=== PATIENT | female | born 1955 | race Caucasian/White ===

== ENCOUNTER 2016-04-29 20:45 | Emergency (ER) | payer MEDICARE, MEDICAID ==
[2016-04-29] MEDS ORDERED: Clarithromycin 250 MG/5 ML Oral Suspension ONE (21:13)
[2016-04-29] MEDS ORDERED: predniSONE 20 MG TAB ONE (21:13)
[2016-04-29 21:36] LABS: #Basophils 0.1 thou/uL (0.0-0.2); #Eosinphils 1.1 thou/uL (0.0-0.7); #Lymphocytes 1.7 thou/uL (1.20-3.40); #Monocytes 0.7 thou/uL (0.11-0.59); #Neutrophils 5.5 thou/uL (1.40-6.50); %Basophils 0.7 % (0.0-1.0); %Eosinophils 12.5 % (0.0-10.0); %Lymphocytes 18.4 % (21.0-51.0); %Monocytes 8.1 % (0.0-10.0); %Neutrophils 60.2 % (42.0-75.0); Anisocytosis SLIGHT = 6-15 cells (100X) (0-5/hpf); Hemoglobin 10.3 g/dL (12.0-16.0); Hypochromia SLIGHT = 6-15 cells (100X) (0-5/hpf); MDiff Complete? YES; Mean Corpuscular HGB CONC 31.1 g/dL (32.0-36.0); Mean Corpuscular Volume 77.2 fl (81.0-99.0); Mean Platelet Volume 7.3 fL (7.4-10.4); Microcytosis SLIGHT = 6-15 cells (100X) (0-5/hpf); PLT Morphology Comment Appears Adequate; Platelet Count 297 thou/uL (130-400); RBC Distribution Width 16.6 % (11.5-14.5); Red Blood Cell (RBC) Count 4.28 mill/uL (4.20-5.40); White Blood Cell (WBC) Count 9.2 thou/uL (4.8-10.8)
[2016-04-29 21:39] LABS: ALT (SGPT) 8 U/L (0-55); AST (SGOT) 15 U/L (5-34); Albumin 2.9 g/dL (3.4-4.8); Alkaline Phosphatase 89 U/L (40-150); Anion Gap 17 mmol/L (10-20); BUN (Urea Nitrogen) 14 mg/dL (9.8-20.1); Bilirubin, Total 0.4 mg/dL (0.2-1.2); Calc. Creatinine Clearance 0 mL/min (70-130); Calcium 8.2 mg/dL (7.8-10.44); Carbon Dioxide 21 mmol/L (23-31); Chloride 102 mmol/L (98-107); Estimated GFR-MDRD Greater than 90; Globulin 3.6 g/dL (2.4-3.5); Glucose 96 mg/dL (80-115); Potassium 3.7 mmol/L (3.5-5.1); Protein, Total 6.5 g/dL (5.8-8.1); Sodium 136 mmol/L (136-145)
[2016-04-29] MEDS ORDERED: HYDROcodone/Acetaminophen 5/325 mg Tablet ONE (22:00)
--- NOTE | 2016-04-29 22:09 | ERRECORD ---
[facility] EMERGENCY RECORD HPI COUGH (21:04 ABUS) CHIEF COMPLAINT: Patient presents for evaluation of cough, productive of yellow sputum. HISTORIAN: History provided by patient, 61 yr old F with PMH of Asthma and HTN who comes iin with reports of SOB, cough and sick contact (granddaughter) for the past 2-3 days. Cough is productive (yellow). Also has R ankle pain after stepping into a pot hole and twisting it. LOCATION: Symptoms are generalized. QUALITY: Denies choking sensation, Symptoms described as wheezing. SEVERITY: Currently symptoms are moderate. TIME COURSE: Gradual onset of symptoms, 3, days priror to arrival, There has been no change in the patient's symptoms over time, are constant. ASSOCIATED WITH: No associated chest pain, No associated diarrhea, No associated fever, No associated nausea, No associated stridor, Associated with upper respiratory infection, Associated with wheezing. EXACERBATED BY: Patient's condition exacerbated by nothing. RELIEVED BY: Patient's condition relieved by nothing, Patient's condition relieved by home nebs, Patient's condition relieved by oxygen. ROS (21:06 ABUS) CONSTITUTIONAL: Negative constitutional review of systems, Historian denies chills, denies fever. CARDIOVASCULAR: Negative cardiovascular review of systems, Historian denies chest pain, denies palpitations. RESPIRATORY: Historian reports cough, reports shortness of breath, reports sputum. yellow. GI: Negative gastrointestinal review of systems, Historian denies abdominal pain, denies constipation, denies diarrhea, denies nausea, denies vomiting. GENITOURINARY FEMALE: Negative genitourinary review of systems, Historian denies dysuria, denies frequency. SKIN: Negative skin review of systems, Historian denies rash, denies skin changes. NEUROLOGIC: Negative neurologic review of systems, Historian denies headache. HEMO/LYMPHATIC: Normal hematologic/lymphatic system review, Historian denies abnormal blood clotting. PAST MEDICAL HISTORY (21:01 CJ) MEDICAL HISTORY: Flu vaccine not up to date, Tetanus immunization up to date, Pneumococcal vaccine not up to date, Past medical history includes gastrointestinal disease, gastroesophageal reflux disease, Past medical history includes history of hypertension, which has been treated, Patient is compliant, Past medical history includes history of malignancy, primary site skin, on face, treated with Chemo cream, Past medical history includes pulmonary disease, chronic obstructive pulmonary disease,. &a-1R&a+25V*p+0X*[id number]*c202B*c15G*c2P*p-0X&a-25V&a+1R Name: Merary Sanchez : 1955 F61 MedRec: [id number] AcctNum: [id number] Prepared: MonApr 29, 2016 22:17 by Interface Page 1 of 5 pMD [facility] EMERGENCY RECORD FEMALE SURGICAL HISTORY: left ankle and bilateral knee surgery, partial hysterectomy, surgery to remove blood clot in abdomen, right shoulder and wrist, skin cancer removed from chin and left forearm. Verified with patient. PSYCHIATRIC HISTORY: No previous psychiatric history. SOCIAL HISTORY: Patient denies alcohol use, Patient denies drug use, Patient has no smoking history, Lives at home, lives with friend,. KNOWN ALLERGIES erythromycin base Influenza Virus Vaccines ketorolac tromethamine LEVAQUIN: Reaction: Anaphylaxis, Severity: Moderate, Source: Patient levofloxacin methylprednisolone sodium succinate ondansetron HCl Penicillins Phenothiazines pneumococcal vaccine promethazine HCl Quinolones Sulfa (Sulfonamide Antibiotics) tiotropium bromide tramadol HCl zolpidem CURRENT MEDICATIONS Proventil HFA: HFA AEROSOL WITH ADAPTER (GRAM) : Strength - 90 mcg : INHALATION Patient Dose: 2 puff(s) Inhaler As Needed. (21:42 CJEF) sucralfate: TABLET : Strength - 1 gram : ORAL Patient Dose: 1 g Oral 2 times a day. (21:42 CJEF) iron: CAPSULE, EXTENDED RELEASE : Strength - 325 mg (65 mg iron) : ORAL Patient Dose: 325 mg Oral once a day. (21:43 CJEF) amLODIPine: TABLET : Strength - 5 mg : ORAL Patient Dose: 5 mg Oral once a day. (21:44 CJEF) cephALEXin: CAPSULE : Strength - 500 mg : ORAL Patient Dose: 500 mg Oral 4 times a day. (21:45 CJEF) furosemide: TABLET : Strength - 40 mg : ORAL Patient Dose: 40 mg Oral once a day. (21:45 CJEF) ranitidine HCl: CAPSULE : Strength - 150 mg : ORAL Patient Dose: 1 tab(s) Oral 2 times a day (before meals). &a-1R&a+25V*p+0X*a1762M*c202B*c15G*c2P*p-0X&a-25V&a+1R Name: Merary Sanchez : 1955 F61 MedRec: [id number] AcctNum: [id number] Prepared: MonApr 29, 2016 22:17 by Interface Page 2 of 5 pMD [facility] EMERGENCY RECORD (21:46 CJEF) enalapril maleate: TABLET : Strength - 20 mg : ORAL Patient Dose: 2 tab(s) Oral 2 times a day. (21:46 CJEF) meTOPROLOL tartrate: TABLET : Strength - 25 mg : ORAL Patient Dose: 1 tab(s) Oral once a day (in the morning). (21:46 CJEF) potassium chloride: TABLET, EXTENDED RELEASE : Strength - 20 mEq : ORAL Patient Dose: 40 mEq Oral 2 times a day. (21:49 CJEF) VITAL SIGNS VITAL SIGNS: Pulse: 102, Resp: 26, O2 sat: 92 on Room Air, Time: 04/29/2016 20:56. (20:56 CJEF) BP: 151/98, Resp: 20, Time: 04/29/2016 20:59. (20:59 CJEF) Temp: 98 (Tympanic), Pain: 8, Time: 04/29/2016 21:21. (21:21 CJEF) BP: 132/60, Pulse: 92, Resp: 21, O2 sat: 100 on Face mask, Time: 04/29/2016 21:29. (21:29 CJEF) BP: 152/73, Pulse: 98, Resp: 20, Temp: 98.1 (Tympanic), Pain: 8, O2 sat: 95 on Room Air, Time: 04/29/2016 22:03. (22:03 CJEF) PHYSICAL EXAM (21:06 ABUS) CONSTITUTIONAL: Vital signs reviewed, Patient afebrile, Pulse normal, Blood pressure normal, Respiratory rate normal, Patient appears non toxic, Patient appears pain free, Patient alert and oriented to person, place and time. NECK: Neck exam normal, Neck exam included findings of normal range of motion, Trachea midline, no meningeal signs, no cervical adenopathy, no tenderness. RESPIRATORY CHEST: Respiratory exam included findings of no respiratory distress, Breath sounds not clear, Wheezing present, scattered, to bilateral upper lobes, Chest exam included findings of chest movement symmetrical, Chest expansion equal, Percussion normal. CARDIOVASCULAR: Cardiovascular assessment normal, Cardiovascular exam included findings of heart rate regular rate and rhythm, Heart sounds normal. ABDOMEN FEMALE: Abdominal exam included findings of abdomen nontender, Bowel sounds normal, no distension, no mass, no pulsatile masses, no peritoneal signs, no rigidity, no guarding, no rebound, Rovsing's sign absent. BACK: Back exam normal, Back exam included findings of normal inspection, range of motion normal, no tenderness. NEURO: Neuro exam normal, Neuro exam findings include patient oriented to person, place and time, Speech normal, Gait normal. SKIN: Skin exam normal, Skin exam included findings of skin warm, dry, and normal in color, no rash. EKG INTERPRETATION (21:28 ABUS) &a-1R&a+25V*p+0X*f0963C*c202B*c15G*c2P*p-0X&a-25V&a+1R Name: Merary Sanchez : 1955 F61 MedRec: [id number] AcctNum: [id number] Prepared: MonApr 29, 2016 22:17 by Interface Page 3 of 5 pMD [facility] EMERGENCY RECORD 12 LEAD EKG INTERPRETATION: 12 lead EKG interpreted by Emergency Department Physician at time of study, 12 lead EKG shows normal sinus rhythm, Rate (beats per minute): 88, with no ectopics, Conduction normal, ST segments normal, T waves, Leads affected: V1, Leads affected: V2, [place], indeterminate, Clinical impression:, non-specific EKG. MEDICATION ADMINISTRATION SUMMARY Drug Name: HYDROcodone-acetaminophen, Dose Ordered: 5/325 tab(s), Route: Oral, Status: Given, Time: 22:03 04/29/2016, Drug Name: clarithromycin, Dose Ordered: 500 mg, Route: Oral, Status: Given, Time: 21:36 04/29/2016, Drug Name: predniSONE oral, Dose Ordered: 40 mg, Route: Oral, Status: Given, Time: 21:19 04/29/2016, Drug Name: DuoNeb, Dose Ordered: 3 mL, Route: Nebulize, Status: Given, Time: 21:18 04/29/2016, Detailed record available in Medication Service section. DOCTOR NOTES (21:06 ABUS) TEXT: 61 yr old F with PMH of Asthma and HTN who comes iin with reports of SOB, cough and sick contact (granddaughter) for the past 2-3 days. Exam: Scattered wheezes throughout; afebrile. Dx: Bronchitis, CAP, viral URI, allergic rhinitis Plan: Nebs, steroids, Biaxin, CXR, and ankle xray. PROBLEM LIST No recorded problems DIAGNOSIS (22:01 ABUS) FINAL: PRIMARY: CAP, ADDITIONAL: LEFT ankle sprain (unspecified). PRESCRIPTION (22:00 ABUS) acetaminophen-codeine: TABLET : 300 mg-30 mg : ORAL : Quantity: 1 Unit: tab(s) Route: ORAL Schedule: every 6 hours PRN Dispense: 8 Unit: tab(s) May substitute. Refills: No Refills . NOTES: No Refills. predniSONE oral: TABLET : 20 mg : ORAL : Quantity: 40 Unit: mg Route: ORAL Schedule: once a day Dispense: 8 Unit: tab(s) May substitute. Refills: No Refills . NOTES: ^s=No Refills No Refills. Biaxin: TABLET : 500 mg : ORAL : Quantity: 1 Unit: tab(s) Route: ORAL Schedule: 2 times a day Dispense: 14 Unit: tab(s) &a-1R&a+25V*p+0X*s9530W*c202B*c15G*c2P*p-0X&a-25V&a+1R Name: Merary Sanchez : 1955 F61 MedRec: [id number] AcctNum: [id number] Prepared: MonApr 29, 2016 22:17 by Interface Page 4 of 5 pMD [facility] EMERGENCY RECORD May substitute. Refills: No Refills POTENTIAL SEVERE INTERACTION: HYDROcodone-acetaminophen (hydrocodone bitartrate/acetaminophen) Override Rationale: Reviewed with patient POTENTIAL SEVERE INTERACTION: amLODIPine Override Rationale: Reviewed with patient. NOTES: ^s=^s=No Refills No Refills No Refills. DISPOSITION PATIENT: Disposition Type: Discharge, Disposition: *Discharge Home, Condition: Good. (22:01 RENARD) Patient left the department. (22:12 MACHELLE) Nice: RENARD=MD Jun, Pee CJEF=PETTY Tejeda, Dalila &a-1R&a+25V*p+0X*c1456M*c202B*c15G*c2P*p-0X&a-25V&a+1R Name: Daniel Merary Chantelle : 1955 F61 MedRec: [id number] AcctNum: [id number] Prepared: MonApr 29, 2016 22:17 by Interface Page 5 of 5 pMD MTDD
--- NOTE | 2016-04-29 22:14 | RAD ---
PA AND LATERAL VIEWS OF THE CHEST: 04/29/16 HISTORY: Cough. FINDINGS/IMPRESSION: The heart is enlarged. The aorta is tortuous. There is mild prominence of the pulmonary vascularity without confluent areas of consolidation, pneumothorax or pleural effusions. There is a fracture of the proximal humerus which is also seen on the exam of 11/28/15. POS: [facility]
--- NOTE | 2016-04-29 22:14 | PICIS ---
[facility] EMERGENCY RECORD TRIAGE (MonApr 29, 2016 20:58 CJEF) TRIAGE NOTES: PT REPORTS SOB THAT STARTED X2-3 DAYS AGO AND PT REPORTS NOW COUGHING UP YELLOW SPUTUM. PT ALSO REPORTS PAIN TO RIGHT ANKLE DUE TO TRIPPING IN HOLE X1 WEEK AGO. PT REPORTS SWELLING TO THE LATERAL SIDE OF RIGHT ANKLE. (MonApr 29, 2016 20:58 CJEF) PATIENT: NAME: Merary Sanchez, AGE: 61, GENDER: female, : Mon1955, TIME OF GREET: MonApr 29, 2016 20:47, PREFERRED LANGUAGE: Frisian, ETHNICITY: Not or , FALL RISK: YES, ECODE BILLING MAP: [facility], SSN: [id number], Zip Code: [address], KG WEIGHT: 74.39, PHONE: , , , PERSON ID: [id number], PCP: ENRIQUETA. (MonApr 29, 2016 20:58 CJEF) COMPLAINT: TROUBLE BREATHING. (MonApr 29, 2016 20:58 CJEF) ADMISSION: URGENCY: 3 Urgent, ADMISSION SOURCE: Home, TRANSPORT: Walk-in, BED: TRIAGE. (MonApr 29, 2016 20:58 CJEF) ASSESSMENT: Assessment: SOB AND RIGHT ANKLE PAIN. (21:01 CJEF) PAIN: Patient complains of pain described as, Location RIGHT ANKLE. (21:01 CJEF) IMMUNIZATIONS: Flu vaccine not up to date, Tetanus immunization up to date, Pneumococcal vaccine not up to date. (21:01 CJEF) SIRS SCORING: Heart Rate 55-109 (0), respiratory rate 25-34 (1), Mental Status altered: no (0), Yes, Infection or Suspected Infection. (21:01 CJEF) SIRS NOTIFICATION: Yes, Infection or Suspected Infection. (21:01 CJEF) TRIAGE SCREENING: Patient denies suicidal ideation, Patient denies presence of domestic violence. (21:01 CJEF) PROVIDERS: TRIAGE NURSE: Dalila Tejeda RN. (MonApr 29, 2016 20:58 CJEF) VITAL SIGNS: Pulse 102, Resp 26, O2 Sat 92, on Room Air, Time 04/29/2016 20:56. (20:56 CJEF) BP 151/98, Resp 20, Time 04/29/2016 20:59. (20:59 CJEF) PREVIOUS VISIT ALLERGIES: LEVAQUIN. (MonApr 29, 2016 20:58 CJEF) LEVAQUIN. (21:01 CJEF) KNOWN ALLERGIES erythromycin base Influenza Virus Vaccines ketorolac tromethamine LEVAQUIN: Reaction: Anaphylaxis, Severity: Moderate, Source: Patient levofloxacin methylprednisolone sodium succinate ondansetron HCl Penicillins Phenothiazines pneumococcal vaccine promethazine HCl &a-1R&a+25V*p+0X*w6145V*c202B*c15G*c2P*p-0X&a-25V&a+1R Name: Merary Sanchez : 1955 F61 MedRec: [id number] AcctNum: [id number] Prepared: MonApr 29, 2016 22:23 by Interface Page 1 of 14 pMD [facility] EMERGENCY RECORD Quinolones Sulfa (Sulfonamide Antibiotics) tiotropium bromide tramadol HCl zolpidem CURRENT MEDICATIONS Proventil HFA: HFA AEROSOL WITH ADAPTER (GRAM) : Strength - 90 mcg : INHALATION Patient Dose: 2 puff(s) Inhaler As Needed. (21:42 CJEF) sucralfate: TABLET : Strength - 1 gram : ORAL Patient Dose: 1 g Oral 2 times a day. (21:42 CJEF) iron: CAPSULE, EXTENDED RELEASE : Strength - 325 mg (65 mg iron) : ORAL Patient Dose: 325 mg Oral once a day. (21:43 CJEF) amLODIPine: TABLET : Strength - 5 mg : ORAL Patient Dose: 5 mg Oral once a day. (21:44 CJEF) cephALEXin: CAPSULE : Strength - 500 mg : ORAL Patient Dose: 500 mg Oral 4 times a day. (21:45 CJEF) furosemide: TABLET : Strength - 40 mg : ORAL Patient Dose: 40 mg Oral once a day. (21:45 CJEF) ranitidine HCl: CAPSULE : Strength - 150 mg : ORAL Patient Dose: 1 tab(s) Oral 2 times a day (before meals). (21:46 CJEF) enalapril maleate: TABLET : Strength - 20 mg : ORAL Patient Dose: 2 tab(s) Oral 2 times a day. (21:46 CJEF) meTOPROLOL tartrate: TABLET : Strength - 25 mg : ORAL Patient Dose: 1 tab(s) Oral once a day (in the morning). (21:46 CJEF) potassium chloride: TABLET, EXTENDED RELEASE : Strength - 20 mEq : ORAL Patient Dose: 40 mEq Oral 2 times a day. (21:49 CJEF) VITAL SIGNS VITAL SIGNS: Pulse: 102, Resp: 26, O2 sat: 92 on Room Air, Time: 04/29/2016 20:56. (20:56 CJEF) BP: 151/98, Resp: 20, Time: 04/29/2016 20:59. (20:59 CJEF) Temp: 98 (Tympanic), Pain: 8, Time: 04/29/2016 21:21. (21:21 CJEF) BP: 132/60, Pulse: 92, Resp: 21, O2 sat: 100 on Face mask, Time: 04/29/2016 21:29. (21:29 CJEF) BP: 152/73, Pulse: 98, Resp: 20, Temp: 98.1 (Tympanic), Pain: 8, O2 sat: 95 on Room Air, Time: 04/29/2016 22:03. (22:03 CJEF) &a-1R&a+25V*p+0X*b2184V*c202B*c15G*c2P*p-0X&a-25V&a+1R Name: Merary Sanchez : 1955 F61 MedRec: [id number] AcctNum: [id number] Prepared: MonApr 29, 2016 22:23 by Interface Page 2 of 14 pMD [facility] EMERGENCY RECORD NURSING ASSESSMENT: EXTREMITY LOWER (21:09 CJEF) PAIN: aching pain, to the right ankle, on a scale 0-10 patient rates pain as 8. LEFT LOWER EXTREMITY: Left lower extremity assessment findings include capillary refill less than 2 seconds, Skin color normal, Skin temperature warm, Distal sensation intact, Muscle tone normal, Notes: DEFORMITY NOTED TO LEFT ANKLE FROM PREVIOUS ANKLE FRACTURE AND SURGERIES. RIGHT LOWER EXTREMITY: Right lower extremity assessment findings include capillary refill less than 2 seconds, Skin color normal, Skin temperature warm, Distal sensation intact, Muscle tone normal, Inspection findings include swelling, to RIGHT ANKLE. NOTES: Patient tolerated procedure well. SAFETY: Side rails up, Cart/Stretcher in lowest position, Family at bedside, Call light within reach, Hospital ID band on. NURSING ASSESSMENT: FALL RISK (21:11 [facility]) FALL RISK: Fall risk assessment findings include: History of falls (5), No bed rest greater than 2 days (0), No use of level of consciousness altering agents with mentation or cognitive changes (0), No change in blood pressure (0), Sensory deficits (1), Impaired mobility (3), No neurologic diagnosis (0), Elimination problems (3), No confusion (0), Total score 12, Fall risk. HENDRICH II FALL RISK: Hendrich II Fall Risk assessment findings include patient not confused, disoriented or impulsive, not symptomatic or depressed, altered elimination(1), no dizziness or vertigo, female, no antiepileptics (anticonvulsants) administered, no Benzodiazepines administered, Multiple attempts, but successful(3), Total score 4, Score less than 5. Patient not high risk for falls. NURSING ASSESSMENT: RESPIRATORY /CHEST (21:07 [facility]) CONSTITUTIONAL: Complex assessment performed, Patient arrives ambulatory, Unsteady gait, Assistance to cart, History obtained from patient, Patient appears, in respiratory distress, generally ill, Patient cooperative, Patient alert, Oriented to person, place and time, Skin warm, Skin dry, Skin normal in color, Mucous membranes pink, Mucous membranes moist, Patient, poorly groomed, with poor personal hygiene, PT REPORTS SOB THAT STARTED X2-3 DAYS AGO AND PT REPORTS NOW COUGHING UP YELLOW SPUTUM. PT ALSO REPORTS PAIN TO RIGHT ANKLE DUE TO TRIPPING IN HOLE X1 WEEK AGO. PT REPORTS SWELLING TO THE LATERAL SIDE OF RIGHT ANKLE. PAIN: aching pain, PT REPORTS TIGHTNESS TO CHEST, on a scale 0-10 patient rates pain as 8. RESPIRATORY/CHEST: Lungs auscultated, Breath sounds with wheezing, audibly, to bilateral upper lobes, to bilateral lower lobes, Respiratory assessment &a-1R&a+25V*p+0X*n4782W*c202B*c15G*c2P*p-0X&a-25V&a+1R Name: Merary Sanchez : 1955 F61 MedRec: [id number] AcctNum: [id number] Prepared: MonApr 29, 2016 22:23 by Interface Page 3 of 14 pMD [facility] EMERGENCY RECORD findings include respiratory effort, labored, Respirations regular, Converses, in short phrases, Neck and chest exam findings include trachea midline, Chest expansion equal, Chest movement symmetrical, Signs of distress, in moderate distress, Associated with cough, productive of, yellow sputum. ENT: Ear assessment findings include ear normal to inspection, Nasal assessment findings include nose normal to inspection, Congestion, bilaterally, Mouth and throat assessment findings include mouth inspection normal. NOTES: Patient tolerated procedure well. SAFETY: Side rails up, Cart/Stretcher in lowest position, Family at bedside, Call light within reach, Hospital ID band on. NURSING ASSESSMENT: SKIN (21:10 CJEF) SKIN: Skin assessment findings include skin warm, Skin dry, Skin normal in color. ARNIE SCALE: (3) Sensory perception slightly limited, (3) Skin is occasionally moist, (3) Patient walks occasionally, (3) Slightly limited mobility, (3) Adequate nutrition, (2) Patient has potential problem moving, Arnie Risk Total: 17. NOTES: Patient tolerated procedure well. SAFETY: Side rails up, Cart/Stretcher in lowest position, Family at bedside, Call light within reach, Hospital ID band on. NURSING PROCEDURE: BEDSIDE SIRS TESTING (21:50 CJEF) SCORES: Heart Rate 55-109 (0), Temp range 96.8-101.1 (0), respiratory rate 12-24 (0), Latest WBC 3-14.9 (0), Mental Status altered: no (0), Yes, Infection or Suspected Infection. SIRS: Yes, Infection or Suspected Infection. NURSING PROCEDURE: SUPERVISOR MIRROR FABRICATION (21:02 CJEF) PATIENT IDENTIFIER: Patient actively involved in identification process, Patient's identity verified by patient stating name, Patient's identity verified by patient stating date. SUPERVISOR MIRROR FABRICATION: Cardiac monitoring indicated for RESP DISTRESS, Patient placed on cardiac surgeon, Heart rate: 94, showing normal sinus rhythm, Patient placed on non-invasive blood pressure monitor, Patient placed on continuous pulse oximetry, Adult/pediatric oxisensor applied. FOLLOW-UP: After procedure, alarms set and on, After procedure, patient tolerating monitoring. NOTES: Patient tolerated procedure well. SAFETY: Side rails up, Cart/Stretcher in lowest position, Family at bedside, Call light within reach, Hospital ID band on. NURSING PROCEDURE: DISCHARGE NOTE (22:12 CJ) DISCHARGE: Patient discharged to home, ambulating with assistance, family driving, accompanied by other family member, &a-1R&a+25V*p+0X*d5984X*c202B*c15G*c2P*p-0X&a-25V&a+1R Name: Merary Sanchez : 1955 F61 MedRec: [id number] AcctNum: [id number] Prepared: MonApr 29, 2016 22:23 by Interface Page 4 of 14 pMD [facility] EMERGENCY RECORD Summary of Care printed/ provided, Patient requested and was provided an electronic copy of Discharge Instructions, Transition record given to patient, Discharge instructions given to patient, Simple or moderate discharge teaching performed, Prescriptions given and instructions on side effects given, Medication reconciliation form given, Above person(s) verbalized understanding of discharge instructions and follow-up care, Patient treated and evaluated by physician. BELONGINGS: Belongings remain with patient. NOTES: Patient tolerated procedure well. SAFETY: Side rails up, Cart/Stretcher in lowest position, Family at bedside, Call light within reach, Hospital ID band on. NURSING PROCEDURE: EKG CHART (21:26 [facility]) PATIENT IDENTIFIER: Patient actively involved in identification process, Patient's identity verified by patient stating name, Patient's identity verified by patient stating date. EKG: EKG indicated for RESP DISTRESS, 12 lead EKG performed on the left chest, first EKG. FOLLOW-UP: After procedure, EKG for interpretation given to Dr. VALERO. NOTES: Patient tolerated procedure well. SAFETY: Side rails up, Cart/Stretcher in lowest position, Family at bedside, Call light within reach, Hospital ID band on. NURSING PROCEDURE: LAB DRAW (21:14 CJ) PATIENT IDENTIFIER: Patient actively involved in identification process, Patient's identity verified by patient stating name, Patient's identity verified by patient stating date. LAB DRAW: Initial lab draw performed, from vascular access device, Notes: LAB AT [facility] TO COLLECT BLOOD. NOTES: Patient tolerated procedure well. SAFETY: Side rails up, Cart/Stretcher in lowest position, Family at bedside, Call light within reach, Hospital ID band on. NURSING PROCEDURE: NURSE NOTES (21:29 CJEF) NURSES NOTES: Patient in no apparent distress, Patient resting quietly, Notes: PT RESTING IN BED QUIETLY WITH FAMILY AT BEDSIDE. NO DISTRESS NOTED. NURSING PROCEDURE: OXYGEN THERAPY (21:19 CJEF) PATIENT IDENTIFIER: Patient actively involved in identification process, Patient's identity verified by patient stating name, Patient's identity verified by patient stating date. OXYGEN THERAPY: Oxygen therapy indicated for wheezing, Prior to procedure, breath sounds with wheezing, audibly, to bilateral upper lobes, to bilateral lower lobes, 6L oxygen given, DUO NEB ADMINISTRATION. FOLLOW-UP: After procedure, oxygen saturation 100%, After procedure, breath sounds with wheezing. &a-1R&a+25V*p+0X*c2111L*c202B*c15G*c2P*p-0X&a-25V&a+1R Name: Merary Sanchez : 1955 F61 MedRec: [id number] AcctNum: [id number] Prepared: MonApr 29, 2016 22:23 by Interface Page 5 of 14 pMD [facility] EMERGENCY RECORD NOTES: Patient tolerated procedure well. SAFETY: Side rails up, Cart/Stretcher in lowest position, Family at bedside, Call light within reach, Hospital ID band on. NURSING PROCEDURE: SPLINTING (22:06 CJEF) PATIENT IDENTIFIER: Patient actively involved in identification process, Patient's identity verified by patient stating name, Patient's identity verified by patient stating date. SPLINTING: Splinting indicated for sprain care, Splint applied to, the right ankle, 2 inch chante wrap applied, Immobilized in position of comfort. FOLLOW-UP: After procedure, capillary refill less than 2 seconds, After procedure, distal circulation intact, After procedure, distal motor function intact, After procedure, distal sensation intact, After procedure, distal pulses present. NOTES: Patient tolerated procedure well. SAFETY: Side rails up, Cart/Stretcher in lowest position, Family at bedside, Call light within reach, Hospital ID band on. NURSING PROCEDURE: TRANSPORT TO TESTS PATIENT IDENTIFIER: Patient actively involved in identification process, Patient's identity verified by patient stating name, Patient's identity verified by patient stating date. (21:37 CJEF) TRANSPORT TO TESTS: Transport indicated to facilitate diagnosis, Patient transported to x-ray, via wheelchair, Accompanied by x-ray cnc technician. (21:37 CJ) FOLLOW-UP: After procedure, patient returned to emergency department. (21:50 CJEF) NOTES: Patient tolerated procedure well. (21:37 CJEF) SAFETY: Side rails up, Cart/Stretcher in lowest position, Family at bedside, Call light within reach, Hospital ID band on. (21:37 CJEF) ORDER DETAILS Order Name: B type Natriuretic Peptide, Status: Active, Time: 21:02 04/29/2016, User: RENARD, - Ordered for: MD Valero Anthony, - Entered by: MD Valero Anthony - MonApr 29, 2016 21:02, - Quantity: 1, Order Name: SUPERVISOR MIRROR FABRICATION ED, Status: Done, Time: 21:04 04/29/2016, User: MACHELLE, - Ordered for: MD Valero Anthony, - Entered by: MD Valero Anthony - MonApr 29, 2016 21:02, - Quantity: 1, Order Name: CBC with Differential, Status: Active, Time: 21:02 04/29/2016, User: RENARD, - Ordered for: MD Valero Anthony, - Entered by: MD Valero Anthony - MonApr 29, 2016 21:02, &a-1R&a+25V*p+0X*e1706H*c202B*c15G*c2P*p-0X&a-25V&a+1R Name: Merary Sanchez : 1955 F61 MedRec: [id number] AcctNum: [id number] Prepared: MonApr 29, 2016 22:23 by Interface Page 6 of 14 pMD [facility] EMERGENCY RECORD - Quantity: 1, Order Name: Comprehensive Metabolic Panel, Status: Active, Time: 21:02 04/29/2016, User: RENARD, - Ordered for: MD Valero Anthony, - Entered by: MD Valero Anthony - MonApr 29, 2016 21:02, - Quantity: 1, Order Name: EKG 12 Lead in Emergency Room, Status: Active, Time: 21:02 04/29/2016, User: RENARD, - Ordered for: MD Valero Anthony, - Entered by: MD Valero Anthony - [facility] Apr 29, 2016 21:02, - Quantity: 1, Order Name: ERRT Oxygen Usage ER, Status: Active, Time: 21:06 04/29/2016, User: MACHELLE, - Ordered for: MD Valero Anthony, - Entered by: PETTY Tejeda, [facility] Apr 29, 2016 21:06, - Quantity: 1, Order Name: Miscellaneous Nurse Order(s), Status: Done, Time: 22:06 04/29/2016, User: MACHELLE, - Ordered for: MD Vaelro Anthony, - Entered by: PETTY Tejeda, [facility] Apr 29, 2016 22:06, - Quantity: 1, Order Name: XR Ankle Rt 2 View, Status: Active, Time: 21:03 04/29/2016, User: RENARD, - Ordered for: MD Valero Anthony, - Entered by: MD Valero Anthony - [facility] Apr 29, 2016 21:03, - Quantity: 1, Order Name: XR Chest Pa & Lat STANDARD, Status: Active, Time: 21:02 04/29/2016, User: RENARD, - Ordered for: MD Valero Anthony, - Entered by: MD Valero Anthony - [facility] Apr 29, 2016 21:02, - Quantity: 1. MEDICATION ADMINISTRATION SUMMARY Drug Name: HYDROcodone-acetaminophen, Dose Ordered: 5/325 tab(s), Route: Oral, Status: Given, Time: 22:03 04/29/2016, Drug Name: clarithromycin, Dose Ordered: 500 mg, Route: Oral, Status: Given, Time: 21:36 04/29/2016, Drug Name: predniSONE oral, Dose Ordered: 40 mg, Route: Oral, Status: Given, Time: 21:19 04/29/2016, Drug Name: DuoNeb, Dose Ordered: 3 mL, Route: Nebulize, Status: Given, Time: 21:18 04/29/2016, Detailed record available in Medication Service section. MEDICATION SERVICE clarithromycin: Order: clarithromycin - Dose: 500 mg : Oral Schedule: Now Ordered by: Pee Valero MD Entered by: Pee Valero MD MonApr 29, 2016 21:00 &a-1R&a+25V*p+0X*l9143M*c202B*c15G*c2P*p-0X&a-25V&a+1R Name: Merary Sanchez : 1955 F61 MedRec: [id number] AcctNum: [id number] Prepared: MonApr 29, 2016 22:23 by Interface Page 7 of 14 pMD [facility] EMERGENCY RECORD Documented as given by: Dalila Tejeda RN MonApr 29, 2016 21:36 Patient, Medication, Dose, Route and Time verified prior to administration. Amount given: 500 MG, Site: Medication administered P.O., Mouth check performed after administration of medication, Patient appears Awake and alert- acceptable, Correct patient, time, route, dose and medication confirmed prior to administration, Patient advised of actions and side-effects prior to administration, Allergies confirmed and medications reviewed prior to administration, Patient tolerated procedure well, Patient in position of comfort, Side rails up, Cart in lowest position, Family at bedside. : Follow Up : Response assessment performed, No signs or symptoms of allergic reaction noted, Advised not to ambulate without assistance, Patient in position of comfort, Side rails up, Cart in lowest position, Family at bedside. (22:04 [facility]) DuoNeb: Order: DuoNeb (ipratropium bromide/albuterol sulfate) - Dose: 3 mL : Nebulize Schedule: Now Ordered by: Pee Valero MD Entered by: Pee Valero MD MonApr 29, 2016 21:01 Documented as given by: Dalila Tejeda RN MonApr 29, 2016 21:18 Patient, Medication, Dose, Route and Time verified prior to administration. Amount given: 1 NEB, Site: Medication administered via Hand-held nebulizer, With oxygen, Correct patient, time, route, dose and medication confirmed prior to administration, Patient advised of actions and side-effects prior to administration, Allergies confirmed and medications reviewed prior to administration, Patient tolerated procedure well, Patient in position of comfort, Side rails up, Cart in lowest position, Family at bedside. : Follow Up : Response assessment performed, No signs or symptoms of allergic reaction noted, Advised not to ambulate without assistance, Patient in position of comfort, Side rails up, Cart in lowest position, Family at bedside. (21:37 [facility]) HYDROcodone-acetaminophen: Order: HYDROcodone-acetaminophen (hydrocodone bitartrate/acetaminophen) - Dose: 5/325 tab(s) : Oral POTENTIAL SEVERE INTERACTION: clarithromycin - No alternative available, Reviewed with patient Schedule: Now Ordered by: Pee Valero MD Entered by: Pee Valero MD MonApr 29, 2016 21:58 Documented as given by: Dalila Tejeda RN MonApr 29, 2016 22:03 Patient, Medication, Dose, Route and Time verified prior to administration. Amount given: 1 TAB, Site: Medication administered P.O., Mouth check performed after administration of medication, Patient appears Awake and alert- acceptable, Correct patient, time, route, dose and medication confirmed prior to administration, Patient advised of actions and side-effects prior to administration, Allergies confirmed &a-1R&a+25V*p+0X*v1445Z*c202B*c15G*c2P*p-0X&a-25V&a+1R Name: Merary Sanchez : 1955 F61 MedRec: [id number] AcctNum: [id number] Prepared: MonApr 29, 2016 22:23 by Interface Page 8 of 14 pMD [facility] EMERGENCY RECORD and medications reviewed prior to administration, Patient tolerated procedure well, Patient in position of comfort, Side rails up, Cart in lowest position, Family at bedside. : Follow Up : Response assessment performed, No signs or symptoms of allergic reaction noted, Advised not to ambulate without assistance, Patient in position of comfort, Side rails up, Cart in lowest position, Family at bedside. (22:04 [facility]) predniSONE oral: Order: predniSONE oral (prednisone) - Dose: 40 mg : Oral Schedule: Now Ordered by: Pee Valero MD Entered by: Pee Valero MD MonApr 29, 2016 20:59 Documented as given by: Dalila Tejeda RN MonApr 29, 2016 21:19 Patient, Medication, Dose, Route and Time verified prior to administration. Amount given: 40 MG, Site: Medication administered P.O., Mouth check performed after administration of medication, Patient appears Awake and alert- acceptable, Correct patient, time, route, dose and medication confirmed prior to administration, Patient advised of actions and side-effects prior to administration, Allergies confirmed and medications reviewed prior to administration, Patient tolerated procedure well, Patient in position of comfort, Side rails up, Cart in lowest position, Family at bedside. : Follow Up : Response assessment performed, No signs or symptoms of allergic reaction noted, Advised not to ambulate without assistance, Patient in position of comfort, Side rails up, Cart in lowest position, Family at bedside. (21:37 CJEF) HPI COUGH (21:04 [facility]) CHIEF COMPLAINT: Patient presents for evaluation of cough, productive of yellow sputum. HISTORIAN: History provided by patient, 61 yr old F with PMH of Asthma and HTN who comes iin with reports of SOB, cough and sick contact (granddaughter) for the past 2-3 days. Cough is productive (yellow). Also has R ankle pain after stepping into a pot hole and twisting it. LOCATION: Symptoms are generalized. QUALITY: Denies choking sensation, Symptoms described as wheezing. SEVERITY: Currently symptoms are moderate. TIME COURSE: Gradual onset of symptoms, 3, days priror to arrival, There has been no change in the patient's symptoms over time, are constant. ASSOCIATED WITH: No associated chest pain, No associated diarrhea, No associated fever, No associated nausea, No associated stridor, Associated with upper respiratory infection, Associated with wheezing. EXACERBATED BY: Patient's condition exacerbated by nothing. RELIEVED BY: Patient's condition relieved by nothing, Patient's condition relieved by home nebs, Patient's condition relieved by oxygen. &a-1R&a+25V*p+0X*l0004U*c202B*c15G*c2P*p-0X&a-25V&a+1R Name: Merary Sanchez : 1955 F61 MedRec: [id number] AcctNum: [id number] Prepared: MonApr 29, 2016 22:23 by Interface Page 9 of 14 pMD [facility] EMERGENCY RECORD ROS (21:06 [facility]) CONSTITUTIONAL: Negative constitutional review of systems, Historian denies chills, denies fever. CARDIOVASCULAR: Negative cardiovascular review of systems, Historian denies chest pain, denies palpitations. RESPIRATORY: Historian reports cough, reports shortness of breath, reports sputum. yellow. GI: Negative gastrointestinal review of systems, Historian denies abdominal pain, denies constipation, denies diarrhea, denies nausea, denies vomiting. GENITOURINARY FEMALE: Negative genitourinary review of systems, Historian denies dysuria, denies frequency. SKIN: Negative skin review of systems, Historian denies rash, denies skin changes. NEUROLOGIC: Negative neurologic review of systems, Historian denies headache. HEMO/LYMPHATIC: Normal hematologic/lymphatic system review, Historian denies abnormal blood clotting. PAST MEDICAL HISTORY (21:01 [facility]) MEDICAL HISTORY: Flu vaccine not up to date, Tetanus immunization up to date, Pneumococcal vaccine not up to date, Past medical history includes gastrointestinal disease, gastroesophageal reflux disease, Past medical history includes history of hypertension, which has been treated, Patient is compliant, Past medical history includes history of malignancy, primary site skin, on face, treated with Chemo cream, Past medical history includes pulmonary disease, chronic obstructive pulmonary disease,. FEMALE SURGICAL HISTORY: left ankle and bilateral knee surgery, partial hysterectomy, surgery to remove blood clot in abdomen, right shoulder and wrist, skin cancer removed from chin and left forearm. Verified with patient. PSYCHIATRIC HISTORY: No previous psychiatric history. SOCIAL HISTORY: Patient denies alcohol use, Patient denies drug use, Patient has no smoking history, Lives at home, lives with friend,. PHYSICAL EXAM (21:06 ABUS) CONSTITUTIONAL: Vital signs reviewed, Patient afebrile, Pulse normal, Blood pressure normal, Respiratory rate normal, Patient appears non toxic, Patient appears pain free, Patient alert and oriented to person, place and time. NECK: Neck exam normal, Neck exam included findings of normal range of motion, Trachea midline, no meningeal signs, no cervical adenopathy, no tenderness. RESPIRATORY CHEST: Respiratory exam included findings of no respiratory distress, Breath sounds not clear, Wheezing present, scattered, to bilateral upper lobes, Chest exam included findings of chest movement symmetrical, Chest expansion equal, Percussion normal. &a-1R&a+25V*p+0X*[id number]*c202B*c15G*c2P*p-0X&a-25V&a+1R Name: Merary Sanchez : 1955 F61 MedRec: [id number] AcctNum: [id number] Prepared: MonApr 29, 2016 22:23 by Interface Page 10 of 14 pMD [facility] EMERGENCY RECORD CARDIOVASCULAR: Cardiovascular assessment normal, Cardiovascular exam included findings of heart rate regular rate and rhythm, Heart sounds normal. ABDOMEN FEMALE: Abdominal exam included findings of abdomen nontender, Bowel sounds normal, no distension, no mass, no pulsatile masses, no peritoneal signs, no rigidity, no guarding, no rebound, Rovsing's sign absent. BACK: Back exam normal, Back exam included findings of normal inspection, range of motion normal, no tenderness. NEURO: Neuro exam normal, Neuro exam findings include patient oriented to person, place and time, Speech normal, Gait normal. SKIN: Skin exam normal, Skin exam included findings of skin warm, dry, and normal in color, no rash. EVENTS TRANSFER: Triage to Emergency Triage. (MonApr 29, 2016 20:58 CJEF) Emergency Triage to Main ED -01. (20:59 CJEF) Removed from Emergency Main ED -01. (22:12 CJEF) EKG INTERPRETATION (21:28 ABUS) 12 LEAD EKG INTERPRETATION: 12 lead EKG interpreted by Emergency Department Physician at time of study, 12 lead EKG shows normal sinus rhythm, Rate (beats per minute): 88, with no ectopics, Conduction normal, ST segments normal, T waves, Leads affected: V1, Leads affected: V2, [place], indeterminate, Clinical impression:, non-specific EKG. DOCTOR NOTES (21:06 ABUS) TEXT: 61 yr old F with PMH of Asthma and HTN who comes iin with reports of SOB, cough and sick contact (granddaughter) for the past 2-3 days. Exam: Scattered wheezes throughout; afebrile. Dx: Bronchitis, CAP, viral URI, allergic rhinitis Plan: Nebs, steroids, Biaxin, CXR, and ankle xray. PROBLEM LIST No recorded problems DIAGNOSIS (22:01 ABUS) FINAL: PRIMARY: CAP, ADDITIONAL: LEFT ankle sprain (unspecified). DISPOSITION PATIENT: Disposition Type: Discharge, Disposition: *Discharge Home, Condition: Good. (22:01 ABUS) Patient left the department. (22:12 CJEF) INSTRUCTION (22:02 ABUS) &a-1R&a+25V*p+0X*b0272A*c202B*c15G*c2P*p-0X&a-25V&a+1R Name: Merary Sanchez : 1955 F61 MedRec: [id number] AcctN: [id number] Prepared: MonApr 29, 2016 22:23 by Interface Page 11 of 14 pMD [facility] EMERGENCY RECORD DISCHARGE: ANKLE SPRAIN WITH XRAY, PNEUMONIA (ADULT). FOLLOWUP: [facility], /[facility], [address], [facility] [address], , Follow up with Primary Care Physician in 2-3 days. SPECIAL: As discussed in the ER before you left, please follow up with your primary care doctor or call the referral made for you here in the ED today to establish outpatient follow up for your medical care. Please come back sooner if you start to develop fever, worsening pain, swelling, cough, vomiting, or symptoms that are new or symptoms the concern you. PRESCRIPTION (22:00 ABUS) acetaminophen-codeine: TABLET : 300 mg-30 mg : ORAL : Quantity: 1 Unit: tab(s) Route: ORAL Schedule: every 6 hours PRN Dispense: 8 Unit: tab(s) May substitute. Refills: No Refills . NOTES: No Refills. predniSONE oral: TABLET : 20 mg : ORAL : Quantity: 40 Unit: mg Route: ORAL Schedule: once a day Dispense: 8 Unit: tab(s) May substitute. Refills: No Refills . NOTES: ^s=No Refills No Refills. Biaxin: TABLET : 500 mg : ORAL : Quantity: 1 Unit: tab(s) Route: ORAL Schedule: 2 times a day Dispense: 14 Unit: tab(s) May substitute. Refills: No Refills POTENTIAL SEVERE INTERACTION: HYDROcodone-acetaminophen (hydrocodone bitartrate/acetaminophen) Override Rationale: Reviewed with patient POTENTIAL SEVERE INTERACTION: amLODIPine Override Rationale: Reviewed with patient. NOTES: ^s=^s=No Refills No Refills No Refills. IMAGING *EKG: Image captured from scanner. (21:29 [facility]) *DISCHARGE INSTRUCTIONS RECEIPT: Image captured from scanner. (22:13 [facility]) Page 2 added. Image captured from scanner. (22:13 [facility]) *SUPPLY CHARGE SHEET: Image captured from scanner. (22:13 [facility]) ADMIN (22:02 ABUS) DIGITAL SIGNATURE: MD Valero Anthony. RESULTS (21:48 ABUS) LABORATORY: B type Natriuretic Peptide Collection DT: MonApr 29, 2016 21:17, B type Natriuretic Peptide 60.2 pg/mL, Range (0-100). &a-1R&a+25V*p+0X*j6504T*c202B*c15G*c2P*p-0X&a-25V&a+1R Name: Merary Sanchez : 1955 F61 MedRec: [id number] AcctNum: [id number] Prepared: MonApr 29, 2016 22:23 by Interface Page 12 of 14 pMD [facility] EMERGENCY RECORD Comprehensive Metabolic Panel Collection DT: MonApr 29, 2016 21:17, Sodium 136 mmol/L, Range (136-145), Potassium 3.7 mmol/L, Range (3.5-5.1), Chloride 102 mmol/L, Range (98-107), *Carbon Dioxide 21 - L mmol/L, Range (23-31), Anion Gap 17 mmol/L, Range (10-20), BUN (Urea Nitrogen) 14 mg/dL, Range (9.8-20.1), *Creatinine 0.54 - L mg/dL, Range (0.6-1.1), Estimated GFR-MDRD Greater than 90 , Reference Range for Estimated GFR: Greater than 90, mL/min/1.73 m2 NOTE: The MDRD equation has not been validated for use, with the elderly (over 70 years of age), women, patients with, serious comorbid condition or persons with extremes of body size, muscle, mass, or nutritional status. , Glucose 96 mg/dL, Range (80-115), Calcium 8.2 mg/dL, Range (7.8-10.44), Bilirubin, Total 0.4 mg/dL, Range (0.2-1.2), Protein, Total 6.5 g/dL, Range (5.8-8.1), NOTE: Plasma values are generally 0.3 to 0.5 g/dL higher than serum values, due to the presence of fibrinogen. , *Albumin 2.9 - L g/dL, Range (3.4-4.8), *Globulin 3.6 - H g/dL, Range (2.4-3.5), *Alb/Glob Ratio 0.8 - L g/dL, Range (1.2-2.2), Alkaline Phosphatase 89 U/L, Range (40-150), AST (SGOT) 15 U/L, Range (5-34), ALT (SGPT) 8 U/L, Range (0-55). CBC with Differential Collection DT: MonApr 29, 2016 21:17, White Blood Cell (WBC) Count 9.2 thou/uL, Range (4.8-10.8), Red Blood Cell (RBC) Count 4.28 mill/uL, Range (4.20-5.40), *Hemoglobin 10.3 - L g/dL, Range (12.0-16.0), *Hematocrit 33.1 - L %, Range (36.0-47.0), *Mean Corpuscular Volume 77.2 - L fl, Range (81.0-99.0), *Mean Corpuscular Hemoglobin 24.0 - L pg, Range (27.0-31.0), *Mean Corpuscular HGB CONC 31.1 - L g/dL, Range (32.0-36.0), *RBC Distribution Width 16.6 - H %, Range (11.5-14.5), Platelet Count 297 thou/uL, Range (130-400), *Mean Platelet Volume 7.3 - L fL, Range (7.4-10.4), %Neutrophils 60.2 %, Range (42.0-75.0), *%Lymphocytes 18.4 - L %, Range (21.0-51.0), %Monocytes 8.1 %, Range (0.0-10.0), *%Eosinophils 12.5 - H %, Range (0.0-10.0), %Basophils 0.7 %, Range (0.0-1.0), #Neutrophils 5.5 thou/uL, Range (1.40-6.50), #Lymphocytes 1.7 thou/uL, Range (1.20-3.40), *#Monocytes 0.7 - H thou/uL, Range (0.11-0.59), &a-1R&a+25V*p+0X*l2046A*c202B*c15G*c2P*p-0X&a-25V&a+1R Name: Merary Sanchez : 1955 F61 MedRec: [id number] AcctNum: [id number] Prepared: MonApr 29, 2016 22:23 by Interface Page 13 of 14 pMD [facility] EMERGENCY RECORD *#Eosinphils 1.1 - H thou/uL, Range (0.0-0.7), #Basophils 0.1 thou/uL, Range (0.0-0.2), Anisocytosis SLIGHT = 6-15 cells (100X), Range (0-5/hpf), Microcytosis SLIGHT = 6-15 cells (100X), Range (0-5/hpf), Hypochromia SLIGHT = 6-15 cells (100X), Range (0-5/hpf), PLT Morphology Comment Appears Adequate . Nice: ABUS=MD Jun, Pee CJEF=PETTY Tejeda, Dalila &a-1R&a+25V*p+0X*z9986Z*c202B*c15G*c2P*p-0X&a-25V&a+1R Name: Merary Sanchez : 1955 F61 MedRec: [id number] AcctNum: [id number] Prepared: MonApr 29, 2016 22:23 by Interface Page 14 of 14 pMD [facility]
--- NOTE | 2016-04-29 22:15 | RAD ---
RIGHT ANKLE THREE VIEWS: 04/29/16 HISTORY: Trauma, right ankle pain. FINDINGS/IMPRESSION: The ankle mortise is maintained. No acute fracture or dislocation is identified. Plantar calcaneal s pur is present. POS: [facility]
== END 2016-04-29 22:13 | disposition home or self-care (01) ==
LOC: MADERS 20:45
DX: J18.9 Pneumonia, unspecified organism (principal); S93.402A Sprain of unspecified ligament of left ankle, initial encounter; K21.9 Gastro-esophageal reflux disease without esophagitis; I10 Essential (primary) hypertension; J44.9 Chronic obstructive pulmonary disease, unspecified; Z79.899 Other long term (current) drug therapy; X50.1XXA Overexertion from prolonged static or awkward postures, initial encounter
CPT/HCPCS: 36415; 71020; 80053; 83880; 85025; 93005; J7506; J7620

== ENCOUNTER 2016-08-26 21:34 | Emergency (ER) | payer MEDICARE, MEDICAID ==
--- NOTE | 2016-08-26 22:05 | RAD ---
SINGLE VIEW OF THE CHEST 08/26/16 COMPARISON: 12/27/15 HISTORY: Chest pain. FINDINGS: Single view of the chest shows an enlarged but stable cardiomediastinal silhouette with atherosclero tic calcifications in the aorta. There is no evidence of consolidation, mass or pleural effusion. IMPRESSION: Cardiomegaly without evidence of acute cardiopulmonary disease. POS: [facility]
[2016-08-26] MEDS ORDERED: HYDROcodone/Acetaminophen 5/325 mg Tablet ONE (22:06)
[2016-08-26] MEDS ORDERED: methylPREDNISolone Sod Succ/PF 125 MG/2 ML VIAL ONE (22:06)
[2016-08-26 22:16] LABS: #Lymphocytes 2.1 thou/uL (1.20-3.40); #Monocytes 0.5 thou/uL (0.11-0.59); #Neutrophils 8.5 thou/uL (1.40-6.50); %Basophils 0.3 % (0.0-1.0); %Eosinophils 0.2 % (0.0-10.0); %Lymphocytes 18.4 % (21.0-51.0); %Monocytes 4.7 % (0.0-10.0); %Neutrophils 76.4 % (42.0-75.0); Hemoglobin 10.7 g/dL (12.0-16.0); Mean Corpuscular HGB CONC 31.3 g/dL (32.0-36.0); Mean Corpuscular Hemoglobin 26.2 pg (27.0-31.0); Mean Corpuscular Volume 83.7 fl (81.0-99.0); Mean Platelet Volume 6.5 fL (7.4-10.4); Platelet Count 286 thou/uL (130-400); RBC Distribution Width 17.2 % (11.5-14.5); Red Blood Cell (RBC) Count 4.09 mill/uL (4.20-5.40); White Blood Cell (WBC) Count 11.2 thou/uL (4.8-10.8)
[2016-08-26] MEDS ORDERED: predniSONE 20 MG TAB ONE (22:20)
[2016-08-26 22:25] LABS: ALT (SGPT) 8 U/L (8-55); AST (SGOT) 10 U/L (5-34); Albumin 3.4 g/dL (3.4-4.8); Alkaline Phosphatase 92 U/L (40-150); Anion Gap 16 mmol/L (10-20); BUN (Urea Nitrogen) 16 mg/dL (9.8-20.1); Bilirubin, Total 0.4 mg/dL (0.2-1.2); Calc. Creatinine Clearance 0 mL/min (70-130); Calcium 8.4 mg/dL (7.8-10.44); Carbon Dioxide 27 mmol/L (23-31); Chloride 100 mmol/L (98-107); Estimated GFR-MDRD Greater than 90; Globulin 2.7 g/dL (2.4-3.5); Glucose 168 mg/dL (80-115); Potassium 3.5 mmol/L (3.5-5.1); Protein, Total 6.1 g/dL (6.0-8.3); Sodium 139 mmol/L (136-145)
[2016-08-26 22:32] LABS: Troponin I 0.018 ng/mL (< 0.028)
== END 2016-08-26 23:00 | disposition home or self-care (01) ==
LOC: MADERS 21:34
DX: J44.1 Chronic obstructive pulmonary disease with (acute) exacerbation (principal); K21.9 Gastro-esophageal reflux disease without esophagitis; I10 Essential (primary) hypertension; Z79.52 Long term (current) use of systemic steroids; Z79.2 Long term (current) use of antibiotics; Z79.899 Other long term (current) drug therapy
CPT/HCPCS: 36415; 71010; 80053; 82553; 83880; 84484; 85025; 85379; 93005; J2930; J7506; J7620

== ENCOUNTER 2017-02-10 12:50 | Emergency (ER) | payer MEDICAID, MEDICARE ==
[2017-02-10] MEDS ORDERED: HYDROcodone/Acetaminophen 10/325 mg Tablet ONE (13:40)
--- NOTE | 2017-02-10 13:57 | RAD ---
LEFT ANKLE 3 VIEWS: HISTORY: Ankle injury. FINDINGS: Postoperative changes of the ankle are noted. There is a parveen placed through the distal fibula. Ther e are severe arthritic changes of the ankle joint. Marked deformity to the joint, particularly the t alus. Arthritic changes of the subtalar joint are noted. The bones are demineralized. IMPRESSION: No evidence of acute injury. POS: [facility]
== END 2017-02-10 14:40 | disposition home or self-care (01) ==
LOC: MADERS 12:50
DX: S93.432A Sprain of tibiofibular ligament of left ankle, initial encounter (principal); K21.9 Gastro-esophageal reflux disease without esophagitis; I10 Essential (primary) hypertension; J44.9 Chronic obstructive pulmonary disease, unspecified; X50.1XXA Overexertion from prolonged static or awkward postures, initial encounter

== ENCOUNTER 2017-02-26 09:35 | Emergency (ER) | payer MEDICARE ==
[2017-02-26] MEDS ORDERED: predniSONE 20 MG TAB ONE (10:35)
[2017-02-26] MEDS ORDERED: Acetaminophen 500 MG TAB ONE (10:35)
[2017-02-26 11:13] LABS: #Basophils 0.1 thou/uL (0.0-0.2); #Eosinphils 0.4 thou/uL (0.0-0.7); #Lymphocytes 2.2 thou/uL (1.20-3.40); #Monocytes 0.5 thou/uL (0.11-0.59); #Neutrophils 2.8 thou/uL (1.40-6.50); %Basophils 1.6 % (0.0-1.0); %Eosinophils 6.4 % (0.0-10.0); %Lymphocytes 36.6 % (21.0-51.0); %Monocytes 8.7 % (0.0-10.0); %Neutrophils 46.7 % (42.0-75.0); Hemoglobin 10.4 g/dL (12.0-16.0); Mean Corpuscular HGB CONC 31.5 g/dL (32.0-36.0); Mean Corpuscular Hemoglobin 27.4 pg (27.0-31.0); Mean Corpuscular Volume 87.1 fl (81.0-99.0); Mean Platelet Volume 7.4 fL (7.4-10.4); Platelet Count 227 thou/uL (130-400); White Blood Cell (WBC) Count 5.9 thou/uL (4.8-10.8)
[2017-02-26 11:17] LABS: INR-International Normal Ratio 1.1; PTT 50.2 SEC (22.9-36.1)
[2017-02-26 11:33] LABS: ALT (SGPT) Less than 6 U/L (8-55); AST (SGOT) 15 U/L (5-34); Albumin 2.6 g/dL (3.4-4.8); Alkaline Phosphatase 88 U/L (40-150); Anion Gap 15 mmol/L (10-20); BUN (Urea Nitrogen) 9 mg/dL (9.8-20.1); Bilirubin, Total 0.3 mg/dL (0.2-1.2); Calc. Creatinine Clearance 0 mL/min (70-130); Calcium 8.1 mg/dL (7.8-10.44); Carbon Dioxide 25 mmol/L (23-31); Chloride 103 mmol/L (98-107); Estimated GFR-MDRD Greater than 90; Globulin 4.1 g/dL (2.4-3.5); Glucose 74 mg/dL (80-115); Magnesium 1.6 mg/dL (1.6-2.6); Potassium 3.7 mmol/L (3.5-5.1); Protein, Total 6.7 g/dL (6.0-8.3); Sodium 139 mmol/L (136-145)
[2017-02-26] MEDS ORDERED: Furosemide 20 MG/2 ML VIAL ONE ×2 (13:03→13:16)
--- NOTE | 2017-02-26 13:15 | RAD ---
PORTABLE CHEST: HISTORY: Cough, leg swelling. COMPARISON: 08/26/16 exam. FINDINGS: Heart size is enlarged. Retrocardiac region is difficult to assess. No signs of overt failure or de finite focal infiltrates. IMPRESSION: Cardiomegaly without signs of overt failure. POS: [facility]
[2017-02-26 13:42] LABS: CKMB 2.4 ng/mL (0-6.6); Troponin I Less than 0.010 ng/mL (< 0.028)
== END 2017-02-26 14:13 | disposition short-term general hospital (02) ==
LOC: MADERS 09:35
DX: I11.0 Hypertensive heart disease with heart failure (principal); I50.9 Heart failure, unspecified; K21.9 Gastro-esophageal reflux disease without esophagitis; J44.9 Chronic obstructive pulmonary disease, unspecified; Z79.899 Other long term (current) drug therapy
CPT/HCPCS: 71010; 80053; 82274; 82550; 82553; 83735; 83880; 84443; 84484; 85025; 85610; 85730; 93005; 96374; J1940; J7506; J7620

== ENCOUNTER 2017-03-04 18:23 | Emergency (ER) | payer MEDICARE ==
[~2017-03-04 18:23] MED LIST: Sodium Chloride Irrig Solution 250 ML BOT ONE
[2017-03-04] MEDS ORDERED: HYDROcodone/Acetaminophen 5/325 mg Tablet ONE (18:58)
[2017-03-04] MEDS ORDERED: Lidocaine 1% 20 ML MDV ONE (19:02)
[2017-03-04] MEDS ORDERED: Bacitracin Zinc 1 Packet ONE (19:26)
--- NOTE | 2017-03-04 19:45 | RAD ---
FOUR VIEWS OF THE LEFT KNEE 03/04/17 COMPARISON: None. HISTORY: Left knee injury. FINDINGS: There is severe lateral compartment narrowing with subchondral sclerosis and osteophyte formation. Th ere is diffuse soft tissue swelling. No significant knee joint effusion. No displaced fracture or dis location is seen. There is an old fracture suspected within the proximal left fibular shaft, incomple tely imaged. Curvilinear soft tissue calcifications are seen within the subcutaneous fat anteriorly. IMPRESSION: Chronic findings as detailed above. No acute osseous abnormality seen. POS: [facility]
--- NOTE | 2017-03-04 19:58 | RAD ---
THREE VIEWS OF THE LEFT HAND 03/04/17 COMPARISON: None. HISTORY: Injury. FINDINGS: There is a fracture involving the base of the second proximal phalanx and third proximal phalanx. Bot h fractures are impacted. There may be a nondisplaced obliquely oriented fracture at the base of the fourth proximal phalanx seen on the oblique image 2 of 3. No evidence for dislocation is noted. IMPRESSION: Fracture deformities at the base of the second, third and fourth proximal phalanges. POS: [facility]
--- NOTE | 2017-03-04 20:03 | RAD ---
LEFT FOOT THREE VIEWS 03/04/17 COMPARISON: None. HISTORY: Injury. FINDINGS: The bones are demineralized, limiting detailed assessment for nondisplaced fracture. There are fract ures at the base of the fourth metatarsal head and fifth metatarsal head. 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 Clinical correlation is required. The second through fifth toes are fixed in flexion, limiting a ssessment. There is postoperative hardware associated with the distal fibula. There is severe degenerative moise e involving the tibiotalar articulation, likely on the basis of remote trauma and associated degenera tive change. Diffuse soft tissue swelling is seen involving the left lower extremity. IMPRESSION: Osteopenia. No displaced fracture. There are fractures at the base of the fourth and fifth metatarsal heads, likely old. Clinical correlation required. POS: [facility]
== END 2017-03-04 20:30 | disposition home or self-care (01) ==
LOC: MADERS 18:23
DX: S62.617A Displaced fracture of proximal phalanx of left little finger, initial encounter for closed fracture (principal); S62.613A Displaced fracture of proximal phalanx of left middle finger, initial encounter for closed fracture; S62.615A Displaced fracture of proximal phalanx of left ring finger, initial encounter for closed fracture; S81.012A Laceration without foreign body, left knee, initial encounter; K21.9 Gastro-esophageal reflux disease without esophagitis; I10 Essential (primary) hypertension; J44.9 Chronic obstructive pulmonary disease, unspecified; Z79.899 Other long term (current) drug therapy; W10.9XXA Fall (on) (from) unspecified stairs and steps, initial encounter
CPT/HCPCS: 12002; 29125; 94640; J2001; J7620

== ENCOUNTER 2017-03-21 18:38 | Emergency (ER) | payer MEDICARE ==
[2017-03-21] MEDS ORDERED: HYDROcodone/Acetaminophen 10/325 mg Tablet ONE (19:09)
== END 2017-03-21 19:20 | disposition home or self-care (01) ==
LOC: MADERS 18:38
DX: S62.91XD Unspecified fracture of right hand, subsequent encounter for fracture with routine healing (principal); S81.011D Laceration without foreign body, right knee, subsequent encounter; K21.9 Gastro-esophageal reflux disease without esophagitis; I10 Essential (primary) hypertension; J44.9 Chronic obstructive pulmonary disease, unspecified; Z79.899 Other long term (current) drug therapy; Z85.828 Personal history of other malignant neoplasm of skin; X58.XXXD Exposure to other specified factors, subsequent encounter
CPT/HCPCS: 99283

== ENCOUNTER 2017-03-29 16:31 | Emergency (ER) | payer MEDICARE ==
[2017-03-29] MEDS ORDERED: Ketorolac Tromethamine 60 MG/2 ML VIAL ONE (17:53)
[2017-03-29] MEDS ORDERED: Dexamethasone 4 MG TAB ONE (17:53)
[2017-03-29] MEDS ORDERED: Acetaminophen/Codeine 30-300mg Tablet ONE (18:15)
--- NOTE | 2017-03-29 18:35 | RAD ---
LEFT HAND THREE VIEWS 03/29/17 COMPARISON: 03/04/17 HISTORY: Recent fractures and trauma. Hit hand over door one day ago. FINDINGS: Healing fractures involving the proximal aspect of the proximal phalanx of the second, third and fou rth digit. Persistent diffuse bone demineralization. No acute fractures. IMPRESSION: Healing fractures involving the proximal phalanx of the second, third and fourth digit. POS: [facility]
== END 2017-03-29 19:30 | disposition home or self-care (01) ==
LOC: MADERS 16:31
DX: J45.909 Unspecified asthma, uncomplicated (principal); S62.611D Displaced fracture of proximal phalanx of left index finger, subsequent encounter for fracture with routine healing; S62.613D Displaced fracture of proximal phalanx of left middle finger, subsequent encounter for fracture with routine healing; S62.615D Displaced fracture of proximal phalanx of left ring finger, subsequent encounter for fracture with routine healing; K21.9 Gastro-esophageal reflux disease without esophagitis; I10 Essential (primary) hypertension; J44.9 Chronic obstructive pulmonary disease, unspecified; Z79.899 Other long term (current) drug therapy
CPT/HCPCS: J1885; J7620; J8540

== ENCOUNTER 2017-04-07 15:36 | Emergency (ER) | payer MEDICARE ==
[2017-04-07] MEDS ORDERED: HYDROcodone/Acetaminophen 10/325 mg Tablet ONE (16:38)
[2017-04-07] MEDS ORDERED: Ondansetron ODT 4 MG TAB ONE (16:39)
[2017-04-07] MEDS ORDERED: Benzonatate 100 MG CAP ONE (16:39)
[2017-04-07] MEDS ORDERED: Naproxen 500 MG TAB ONE (16:39)
[2017-04-07] MEDS ORDERED: AMOXicillin 250 MG CAP ONE (16:39)
== END 2017-04-07 16:40 | disposition left against medical advice (07) ==
LOC: MADERS 15:36
DX: J45.909 Unspecified asthma, uncomplicated (principal); K21.9 Gastro-esophageal reflux disease without esophagitis; I10 Essential (primary) hypertension; Z79.899 Other long term (current) drug therapy
CPT/HCPCS: Q0162

== ENCOUNTER 2017-05-06 16:59 | Emergency (ER) | payer MEDICARE ==
[~2017-05-06 16:59] MED LIST changes: +Sodium Chloride 0.9% 1,000 ML BAG ONE; -Sodium Chloride Irrig Solution 250 ML BOT ONE
[2017-05-06 18:01] LABS: #Basophils 0.1 thou/uL (0.0-0.2); #Eosinphils 0.3 thou/uL (0.0-0.7); #Lymphocytes 2.2 thou/uL (1.20-3.40); #Monocytes 0.5 thou/uL (0.11-0.59); #Neutrophils 3.2 thou/uL (1.40-6.50); %Basophils 1.4 % (0.0-1.0); %Eosinophils 4.1 % (0.0-10.0); %Lymphocytes 35.5 % (21.0-51.0); %Monocytes 7.8 % (0.0-10.0); %Neutrophils 51.1 % (42.0-75.0); Hemoglobin 9.8 g/dL (12.0-16.0); Mean Corpuscular HGB CONC 31.3 g/dL (32.0-36.0); Mean Corpuscular Hemoglobin 27.5 pg (27.0-31.0); Mean Corpuscular Volume 87.9 fl (81.0-99.0); Platelet Count 267 thou/uL (130-400); RBC Distribution Width 16.3 % (11.5-14.5); Red Blood Cell (RBC) Count 3.55 mill/uL (4.20-5.40); White Blood Cell (WBC) Count 6.2 thou/uL (4.8-10.8)
[2017-05-06] MEDS ORDERED: Dexamethasone 10 MG/ML VIAL ONE (18:05)
[2017-05-06] MEDS ORDERED: methylPREDNISolone Sod Succ/PF 125 MG/2 ML VIAL ONE (18:05)
[2017-05-06] MEDS ORDERED: MORPHINE 10 MG/ML SYRINGE ONE ×2 (18:07→20:50)
[2017-05-06] MEDS ORDERED: Ketorolac Tromethamine 30 MG/ML VIAL ONE (18:08)
[2017-05-06] MEDS ORDERED: Promethazine HCl 25 MG/ML VIAL ONE (18:08)
[2017-05-06 18:10] LABS: INR-International Normal Ratio 1.1; PTT 57.2 SEC (22.9-36.1); Prothrombin Time 14.1 SEC (12.0-14.7)
[2017-05-06 18:11] LABS: D-Dimer Test 2.16 *mcg/mL (0.27-0.43)
[2017-05-06 18:22] LABS: CKMB 2.6 ng/mL (0-6.6); Troponin I 0.014 ng/mL (< 0.028)
--- NOTE | 2017-05-06 18:28 | RAD ---
PORTABLE CHEST: 05/06/17 COMPARISON: 02/26/17 study. HISTORY: Dyspnea. Heart size is enlarged. Lungs are clear of infiltrates. No signs of failure. Old right humeral neck f racture and deformity to the left shoulder are stable findings. IMPRESSION: Cardiomegaly. No acute process. POS: [facility]
[2017-05-06 18:44] LABS: ALT (SGPT) Less than 7 U/L (8-55); AST (SGOT) 19 U/L (5-34); Albumin 2.7 g/dL (3.4-4.8); Alkaline Phosphatase 113 U/L (40-150); Anion Gap 14 mmol/L (10-20); BUN (Urea Nitrogen) 13 mg/dL (9.8-20.1); Bilirubin, Total 0.3 mg/dL (0.2-1.2); CK (CPK) 32 U/L (29-168); Calc. Creatinine Clearance 0 mL/min (70-130); Calcium 8.4 mg/dL (7.8-10.44); Carbon Dioxide 29 mmol/L (23-31); Chloride 100 mmol/L (98-107); Estimated GFR-MDRD Greater than 90; Globulin 3.8 g/dL (2.4-3.5); Glucose 77 mg/dL (80-115); Magnesium 1.6 mg/dL (1.6-2.6); Potassium 4.1 mmol/L (3.5-5.1); Protein, Total 6.5 g/dL (6.0-8.3); Sodium 139 mmol/L (136-145)
--- NOTE | 2017-05-06 18:58 | RAD ---
AP PELVIS: 05/06/17 HISTORY: Left hip injury Pelvic ring is intact without evidence of fracture. A bone island is seen in the left iliac bone. The re also appears to have been a postsurgical change of the left iliac wing which is probably related t o some type of bone graft. There is no signs of fracture. There are arthritic changes of both hips. IMPRESSION: No evidence of fracture. POS: [facility]
== END 2017-05-06 21:00 | disposition short-term general hospital (02) ==
LOC: MADERS 16:59
DX: J44.1 Chronic obstructive pulmonary disease with (acute) exacerbation (principal); I82.4Z2 Acute embolism and thrombosis of unspecified deep veins of left distal lower extremity; M62.89 Other specified disorders of muscle; K21.9 Gastro-esophageal reflux disease without esophagitis; I10 Essential (primary) hypertension; Z79.899 Other long term (current) drug therapy
CPT/HCPCS: 36415; 71045; 72170; 80053; 82553; 83735; 83880; 84484; 85025; 85379; 85610; 85652; 85730; 87040; 93005; 94640; 96361; 96374; 96376; J1100; J1885; J2270; J2550; J2930; J7050; J7620

== ENCOUNTER 2018-05-29 12:43 | Emergency (ER) | payer MEDICARE, OTHER ==
[2018-05-29] MEDS ORDERED: predniSONE 20 MG TAB ONE (13:11)
[2018-05-29] MEDS ORDERED: Acetaminophen/Codeine 30-300mg Tablet ONE (13:11)
[2018-05-29 13:47] LABS: #Basophils 0.1 thou/uL (0.0-0.2); #Eosinphils 0.3 thou/uL (0.0-0.7); #Lymphocytes 1.8 thou/uL (1.20-3.40); #Monocytes 0.6 thou/uL (0.11-0.59); #Neutrophils 6.4 thou/uL (1.40-6.50); %Basophils 0.9 % (0.0-1.0); %Eosinophils 2.9 % (0.0-10.0); %Lymphocytes 19.9 % (21.0-51.0); %Monocytes 6.5 % (0.0-10.0); %Neutrophils 69.8 % (42.0-75.0); Hemoglobin 11.7 g/dL (12.0-16.0); Mean Corpuscular HGB CONC 30.2 g/dL (32.0-36.0); Mean Corpuscular Hemoglobin 27.2 pg (27.0-31.0); Mean Corpuscular Volume 90.1 fL (78.0-98.0); Mean Platelet Volume 7.1 fL (7.4-10.4); Platelet Count 268 thou/uL (130-400); RBC Distribution Width 15.2 % (11.5-14.5); Red Blood Cell (RBC) Count 4.32 mill/uL (4.20-5.40); White Blood Cell (WBC) Count 9.2 thou/uL (4.8-10.8)
[2018-05-29 14:08] LABS: ALT (SGPT) 7 U/L (8-55); AST (SGOT) 13 U/L (5-34); Albumin 3.5 g/dL (3.4-4.8); Alkaline Phosphatase 88 U/L (40-150); Anion Gap 11 mmol/L (10-20); BUN (Urea Nitrogen) 13 mg/dL (9.8-20.1); Bilirubin, Total 0.7 mg/dL (0.2-1.2); Calc. Creatinine Clearance 0 mL/min (70-130); Calcium 8.6 mg/dL (7.8-10.44); Carbon Dioxide 29 mmol/L (23-31); Chloride 105 mmol/L (98-107); Estimated GFR-MDRD Greater than 90; Globulin 3.1 g/dL (2.4-3.5); Glucose 107 mg/dL (80-115); Protein, Total 6.6 g/dL (6.0-8.3); Sodium 141 mmol/L (136-145)
--- NOTE | 2018-05-29 14:10 | RAD ---
PA AND LATERAL CHEST: History: Cough. FINDINGS: Comparison made with exam of 05-06-17. The heart size is enlarged. The lungs are expanded without focal areas of consolidation or pneumothor aces or pleural effusions. No focal areas of consolidation or pneumothoraces, tk pulmonary edema o r large effusions are seen. Old right humeral head fracture and deformity of the left shoulder are st able. IMPRESSION: No acute process. POS: [facility]
--- NOTE | 2018-05-29 14:12 | RAD ---
LEFT SHOULDER THREE VIEWS: HISTORY: Fall six months ago. Continued left shoulder pain. FINDINGS: A high-riding humeral head is present with degenerative changes in the acromioclavicular and glenohum eral joints. No acute fracture, dislocation, or bony destruction is seen. IMPRESSION: Findings indicative of chronic rotator cuff tear. POS: [facility]
== END 2018-05-29 15:29 | disposition home or self-care (01) ==
LOC: MADERS 12:43
DX: S43.402A Unspecified sprain of left shoulder joint, initial encounter (principal); J45.901 Unspecified asthma with (acute) exacerbation; K21.9 Gastro-esophageal reflux disease without esophagitis; I10 Essential (primary) hypertension; J44.9 Chronic obstructive pulmonary disease, unspecified; Z79.51 Long term (current) use of inhaled steroids; Z79.899 Other long term (current) drug therapy; W01.0XXA Fall on same level from slipping, tripping and stumbling without subsequent striking against object, initial encounter
CPT/HCPCS: 71046; 80053; 83880; 84484; 85025; 93005; J7620